=== PATIENT | female | born 1960 ===

== ENCOUNTER 2020-10-07 12:19 | Emergency (ER) | payer MEDICAID ==
[~2020-10-07] VITALS: Ht 172.7 cm; Wt 69.7 kg
--- NOTE | 2020-10-07 14:32 | NUR ---
PT C/O RIGHT BIG TOE PAIN. PT INJURED TOE A COUPLE WEEKS AGO AT WORK. PT CAUGHT TOE IN THE BLANKET AND IT LIFTED THE TOE NAIL. PT EXPERIENCING A LOT OF PAIN IN TOE. PAIN 4-5/10. POSITICE CMS IN EXT.
[2020-10-07] MEDS ORDERED: LIDOCAINE-MPF 1%, 5ML INFIL ONE (15:30)
[2020-10-07] MEDS ORDERED: LIDOCAINE-MPF 1%, 5ML ONE (15:30)
[2020-10-07] MEDS ORDERED: LIDOCAINE-MPF 1%, 2ML ONE (15:52)
[2020-10-07 16:01] VITALS: BP 140/80
--- NOTE | 2020-10-07 16:02 | NUR ---
PT REC'VD DISCHARGE INSTRUCTIONS AND EDUCATION. PT HAD NO FURTHER QUESTIONS. PT AMBULATED TO DC AREA, STEADY GAIT.
== END 2020-10-07 16:06 | disposition home or self-care (01) ==
LOC: ED 16:00
DX: S91.201A Unspecified open wound of right great toe with damage to nail, initial encounter (principal); W22.8XXA Striking against or struck by other objects, initial encounter; Y93.89 Activity, other specified; Y92.009 Unspecified place in unspecified non-institutional (private) residence as the place of occurrence of the external cause; Y99.8 Other external cause status
CPT/HCPCS: 11730; 99284